=== PATIENT | male | born 1945 | race Caucasian/White ===

== ENCOUNTER 2017-12-07 17:15 | Emergency (ER) | payer MEDICARE, OTHER ==
[~2017-12-07] VITALS: Ht 177.8 cm; Wt 117.9 kg
[~2017-12-07 17:15] MED LIST: BENTYL20 MG PO; CIPRO500 MG; DOXYCYCLINE 10100 MG PO; FLOMAX0.4 MG PO; HYDROCODONE-AP1 EAC6 PO; IBUPROFEN 800800 M1 PO; LISINOPRIL20 MG PO; MOTION RELIEF25 MG PO; MULTIVITAMINS1 EAC7 PO; NEXIUM; PRINIVIL5 MG PO; ZOFRAN ODT4 MG PO; ZOFRAN4 MG PO
[2017-12-07 19:04] VITALS: BP 139/63
== END 2017-12-07 19:05 | disposition home or self-care (01) ==
LOC: M.ERS 17:15
DX: R13.10 Dysphagia, unspecified (principal); I10 Essential (primary) hypertension; K21.9 Gastro-esophageal reflux disease without esophagitis; N40.0 Benign prostatic hyperplasia without lower urinary tract symptoms; Z88.1 Allergy status to other antibiotic agents; Z88.0 Allergy status to penicillin